=== PATIENT | male | born 1975 | race Caucasian/White ===

== ENCOUNTER 2021-02-11 15:52 | Emergency (ER) | payer SELFPAY ==
[2021-02-11 16:00] VITALS: BP 155/66; PULSE 60; RESP 18; TEMP 98.7
--- NOTE | 2021-02-11 16:40 | ED ---
Recheck HPI - General Source: patient Mode of arrival: ambulatory Limitations: no limitations <Abdirahman Scanlon - Last Filed: 02/11/21 16:39> <Karyn Rothman - Last Filed: 02/12/21 01:19> - General Chief Complaint: Recheck/Abnormal Lab/Rx Stated Complaint: Covid Test Time Seen by Provider: 02/11/21 16:00 - History of Present Illness Initial Comments: 45-year-old male presenting for Covid testing. Has no other complaints. Needs this for international travel (Abdirahman Scanlon) - Related Data Allergies Allergy/AdvReac Type Severity Reaction Status Date / Time No Known Allergies Allergy Verified 02/11/21 16:00 Review of Systems ROS Other: All systems not noted in ROS Statement are negative. <Abdirahman Scanlon - Last Filed: 02/11/21 16:39> ROS Other: All systems not noted in ROS Statement are negative. <Karyn Rothman - Last Filed: 02/12/21 01:19> ROS Statement: Those systems with pertinent positive or pertinent negative responses have been documented in the HPI. Past Medical History History of Any Multi-Drug Resistant Organisms: None Reported Past Psychological History: No Psychological Hx Reported Smoking Status: Never smoker Past Alcohol Use History: None Reported Past Drug Use History: None Reported <Abdirahman Scanlon - Last Filed: 02/11/21 16:39> General Exam Limitations: no limitations General appearance: alert, in no apparent distress Head exam: Present: normal inspection Eye exam: Present: normal appearance ENT exam: Present: normal exam Neck exam: Present: normal inspection Respiratory exam: Present: normal lung sounds bilaterally Cardiovascular Exam: Present: regular rate, normal rhythm, normal heart sounds Extremities exam: Present: normal inspection Back exam: Present: normal inspection Neurological exam: Present: alert, oriented X3 Psychiatric exam: Present: normal affect, normal mood Skin exam: Present: intact, normal color <Abdirahman Scanlon - Last Filed: 02/11/21 16:39> Course Vital Signs 02/11/21 15:58 Temperature 98.7 F Pulse Rate 60 Respiratory 18 Rate Blood Pressure 155/66 O2 Sat by Pulse 99 Oximetry Medical Decision Making <Abdirahman Scanlon - Last Filed: 02/11/21 16:39> <Karyn Rothman - Last Filed: 02/12/21 01:19> - Medical Decision Making Negative Covid (Abdirahman Scanlon) I was available for consultation in the emergency department. The history and physical exam were done by the midlevel provider. I was consulted for this patients care. I reviewed the case with the midlevel provider and based on their presentation of the patient, I agree with the assessment, medical decision making and plan of care as documented. Chart was dictated using [employer] dictation software. Attempts were made to correct any dictation errors however some typographical errors may persist. Patient was seen during a national state of emergency due to the Covid-19 pandemic. (Karyn Rothman) - Lab Data Lab Results 02/11/21 Range/Units 16:05 Coronavirus (PCR) Not Detected (Not Detectd) Disposition Is patient prescribed a controlled substance at d/c from ED?: No Time of Disposition: 16:40 <Abdirahman Scanlon - Last Filed: 02/11/21 16:39> <Karyn Rothman - Last Filed: 02/12/21 01:19> Clinical Impression: Lab test negative for COVID-19 virus Disposition: HOME SELF-CARE Condition: Stable Referrals: None,Stated [Primary Care Provider] - 1-2 days
== END 2021-02-11 17:10 | disposition home or self-care (01) ==
LOC: EC 15:52
DX: Z11.52 Encounter for screening for COVID-19 (principal); Z20.822 Contact with and (suspected) exposure to COVID-19
CPT/HCPCS: 87635; 99282